=== PATIENT | female | born 1985 | race Two or more races ===

== ENCOUNTER 2017-03-30 11:49 | Emergency (ER) | payer MEDICAID ==
[~2017-03-30] VITALS: Ht 152.4 cm; Wt 62.1 kg
[2017-03-30 12:18] VITALS: BP 112/78
[2017-03-30] MEDS ORDERED: ACYCLOVIR400 MG ORAL (12:35)
[2017-03-30] MEDS ORDERED: ACETAMINOPHEN-1 EAC1 ORAL (12:35)
[2017-03-30] MEDS ORDERED: LIDOCAINE20 MG/1 M1 MM (12:35)
--- NOTE | 2017-03-30 12:36 | Emergency Room Report ---
History of Present Illness General Chief Complaint: Skin Rash/Abscess Source: Patient Present Illness HPI 31-year-old female complains of soft palate pain for one week. States that her daughter had stomatitis and that she had used the same strawberry out of drink. States early after she started having pain at the roof of her mouth that is tender to touch. States that she's got a medication for her symptoms and that she has worsening with eating food and no relieving factors. States the pain is constant denies any other physical complaints.Denies any current n/v/f/c/d, abd pain, back pain, neck pain, photophobia, phonophobia, CP, SOB or headache. Allergies: Coded Allergies: No Known Allergies (Unverified , 03/30/17) Patient History Last Menstrual Period: last month Now: No Immunizations: UTD Reviewed Nursing Documentation: PMH: Agreed, PSxH: Agreed Nursing Documentation-PMH Past Medical History: No Stated History Review of Systems All Other Systems: negative except mentioned in HPI Physical Exam Vital Signs Date Time Temp Pulse Resp B/P (MAP) Pulse Ox O2 Delivery O2 Flow Rate FiO2 03/30/17 11:57 98.2 107 20 112/78 98 Room Air Sp02 EP Interpretation: reviewed, normal General Appearance: no apparent distress, alert, GCS 15, non-toxic Head: normocephalic, atraumatic Eyes: bilateral eye normal inspection, bilateral eye PERRL ENT: hearing grossly normal, normal pharynx, no angioedema, normal voice, pharyngeal erythema, other - 2cm x 3cm Aphthous Ulcer extending to anterior and posterior palate with local erythema w/o swelling, discharge or induration Neck: full range of motion, supple/symm/no masses Respiratory: chest non-tender, lungs clear, normal breath sounds, speaking full sentences Cardiovascular #1: regular rate, rhythm, no edema Musculoskeletal: gait/station normal Neurologic: alert, oriented x3 Psychiatric: judgement/insight normal, mood/affect normal Skin: normal color, no rash, warm/dry, well hydrated Lymphatic: no adenopathy Medical Decision Making PA Attestation Dr. Arenas is my supervising physician with whom patient management has been discussed with. ER Course Pt. presents to the ED c/o of mouth pain Differential includes viral pharyngitis bacterial pharyngitis peritonsillar abscess tonsils stone and meningitis Vital signs: are WNL, pt. is afebrile H&PE are most consistent with herpangina stomatitis ORDERS: none required at this time, the diagnosis is clinical ED INTERVENTIONS: None required at this time. DISCHARGE: At this time pt. is stable for d/c to home. Will provide printed patient care instructions, and any necessary prescriptions. Care plan and follow up instructions have been discussed with the patient prior to discharge. Last Vital Signs Date Time Temp Pulse Resp B/P (MAP) Pulse Ox O2 Delivery O2 Flow Rate FiO2 03/30/17 12:18 98.2 107 20 112/78 98 Room Air Disposition: HOME, SELF-CARE Condition: Stable Scripts Acyclovir* (ACYCLOVIR*) 400 Mg Tablet 800 MG ORAL THREE TIMES A DAY for 7 Days, #21 TAB Prov: DOUGLAS SCALES.A. 03/30/17 Acetaminophen With Codeine (T#3) (TYLENOL #3 TAB*) Y Tab 1 TAB ORAL Q8H Y for For Pain for 3 Days, #12 TAB Prov: DOUGLAS SCALES P.A. 03/30/17 Lidocaine HCl (Lidocaine HCl Viscous) 100 Ml Solution 20 MG MM EVERY 6 HOURS for 5 Days, #120 ML Prov: DOUGLAS SCALES P.A. 03/30/17 Patient Instructions: Herpangina, Pediatric, Stomatitis Additional Instructions: Take medication as directed. Advised patient to use salt water gargle PRN. Advised patient to use chloraseptic as needed for throat pain in addition to APAP Q4H. Patient advised they can take Ibuprofen and Tylenol Q6H together for fever control as well. If sxs worsen or don't improve, please return sooner. Go to the ER if you develop SOB, CP, Rash, photophobia, neck pain, throat swelling occur, go to the ER immediately. DOUGLAS SCALES Mar 30, 2017 12:36
[2017-03-30 13:05] VITALS: BP 112/78
== END 2017-03-30 13:05 | disposition home or self-care (01) ==
LOC: EMR 13:00
DX: R21 Rash and other nonspecific skin eruption (principal); K12.0 Recurrent oral aphthae
CPT/HCPCS: 99284

== ENCOUNTER 2017-08-10 13:59 | Emergency (ER) | payer MEDICAID ==
[~2017-08-10] VITALS: Ht 142.2 cm; Wt 54.4 kg
[~2017-08-10 13:59] MED LIST: ACETAMINOPHEN-1 EAC1 ORAL; ACYCLOVIR400 MG ORAL; LIDOCAINE20 MG/1 M1 MM
[2017-08-10] MEDS ORDERED: Lidocaine 2% Visc 15ml soln ORAL ONE (14:15)
[2017-08-10] MEDS ORDERED: Mylanta II UD 30ml ORAL ONE (14:15)
[2017-08-10 14:17] VITALS: BP 118/75
[2017-08-10] MEDS ORDERED: Ketorolac 60mg Inj IM ONE (14:30)
--- NOTE | 2017-08-10 14:30 | Emergency Room Report ---
History of Present Illness General Chief Complaint: General Complaint Source: Patient Present Illness HPI 31-year-old female presents to the ED c/o pain to "bump in the middle of chest" been there for years. Describes of 8/10 in severity lower sternal pain times years. Patient reports that increase in pain and tenderness over the course of several months. Denies nausea, vomiting, fevers, chills. Patient denies trauma or fall she denies erythema, open wounds or cardiac history. Denies history of acid reflux She reports pain is exacerbated upon taking deep breaths. She denies abdominal pain or tenderness. . Denies recent URI. Denies cough, fevers , chills or history of asthma or COPD.Denies Palpitations, LOC, AMS, dizziness , Changes in Vision, Sensation, paresthesias, or a sudden severe headache. Allergies: Coded Allergies: No Known Allergies (Unverified , 03/30/17) Patient History Past Medical History: see triage record Past Surgical History: none Pertinent Family History: none Last Menstrual Period: 08/08/17 Reviewed Nursing Documentation: PMH: Agreed, PSxH: Agreed Nursing Documentation-PMH Past Medical History: No Stated History Review of Systems All Other Systems: negative except mentioned in HPI Physical Exam Vital Signs Date Time Temp Pulse Resp B/P (MAP) Pulse Ox O2 Delivery O2 Flow Rate FiO2 08/10/17 14:01 98.8 77 18 118/75 98 Room Air Sp02 EP Interpretation: reviewed, normal General Appearance: no apparent distress, alert, GCS 15, non-toxic Head: normocephalic, atraumatic Eyes: bilateral eye normal inspection, bilateral eye PERRL ENT: hearing grossly normal, normal voice Neck: full range of motion Respiratory: lungs clear, normal breath sounds, speaking full sentences, other - Reproducible pain and tenderness to the lower portion of the sternum/xiphoid process. Mild protrusion palpated. No increased temperature palpation no flail chest. Lungs sounds are clear bilaterally. Cardiovascular #1: regular rate, rhythm Gastrointestinal: normal bowel sounds, non tender, soft, other - Negative [place] signs, Negative MacBurney's sign, Negative Rosvigns Sign, Negative Psoas , No Peritoneal signs. Rectal: deferred Genitourinary: normal inspection Musculoskeletal: back normal, gait/station normal, normal range of motion, other Neurologic: alert, oriented x3, responsive, motor strength/tone normal, sensory intact, speech normal, grossly normal Psychiatric: judgement/insight normal Skin: normal color, no rash, warm/dry, well hydrated Medical Decision Making PA Attestation Dr. Alvarenga is my supervising Physician whom patient management has been discussed with. Diagnostic Impression: Primary Impression: Xyphoidalgia ER Course Pt. presents to the ED c/o pain to "bump in the middle of chest" been there for years. Describes of 8/10 in severity lower sternal pain times years. Patient reports that increase in pain and tenderness over the course of several months. Denies nausea, vomiting, fevers, chills. Patient denies trauma or fall she denies erythema, open wounds or cardiac history. Denies history of acid reflux She reports pain is exacerbated upon taking deep breaths. She denies abdominal pain or tenderness. . Denies recent URI. Denies cough, fevers, chills or history of asthma or COPD.Denies Palpitations, LOC, AMS, dizziness, Changes in Vision, Sensation, paresthesias, or a sudden severe headache. Ddx considered but are not limited to Fracture, dislocation, contusion, Sprain/ Strain/Spasm, Xiphoidalgia, Neoplastic mets. Vital signs: are WNL, pt. is afebrile H&PE are most consistent with musculoskeletal injury will perform imaging to r/ o fractures/dislocations. ORDERS:Not required at this time, mild rig cage deformity noted at the lower xiphoid process, flail chest no evidence to support acute fracture, acute lung pathology. -Reproducible pain and tenderness to the lower portion of the sternum/xiphoid process. Mild protrusion palpated. No increased temperature palpation no flail chest. Lungs sounds are clear bilaterally. ED INTERVENTIONS: - Toradol IM 20mg -I do not identify an emergent condition at this time. With current presentation , pt. is stable for close outpatient follow up and conservative treatment. D/ w pt. to return promptly to ED with worsening or new symptoms.- Pt. (and or responsible democrat) verbalizes' understanding and agreement with proposed treatment plan.proposed treatment plan. DISCHARGE: At this time pt. is stable for d/c to home. Will provide printed patient care instructions, and any necessary prescriptions. Care plan and follow up instructions have been discussed with the patient prior to discharge. Last Vital Signs Date Time Temp Pulse Resp B/P (MAP) Pulse Ox O2 Delivery O2 Flow Rate FiO2 08/10/17 14:17 98.8 76 18 118/75 98 Room Air Disposition: HOME, SELF-CARE Condition: Stable Scripts Albuterol Sulfate* (ALBUTEROL SULFATE MDI*) 8.5 Gm Hfa.aer.ad 2 PUFF INH Q4H, #1 INH 0 Refills Prov: Mallory Leyva 08/10/17 Ibuprofen* (MOTRIN*) 600 Mg Tablet 600 MG ORAL THREE TIMES A DAY, #30 TAB 0 Refills Prov: Mallory Leyva 08/10/17 Additional Instructions: Take medications as directed. Follow up with a Primary Care Provider in 3-5 days, even if your symptoms have resolved. --Please review list of primary care clinics, if you do not already have a primary care provider Return sooner to ED if new symptoms occur, or current symptoms become worse. - Please note that this Emergency Department Report was dictated using [employer] medical science technology software, occasionally this can lead to erroneous entry secondary to interpretation by the dictation equipment. Mallory Leyva Aug 10, 2017 14:30
[2017-08-10] MEDS ORDERED: ALBUTEROL SULF8.5 GM INH (14:54)
[2017-08-10] MEDS ORDERED: IBUPROFEN600 MG ORAL (14:54)
[2017-08-10 15:09] VITALS: BP 118/75
== END 2017-08-10 15:00 | disposition home or self-care (01) ==
LOC: EMR 14:45
DX: R07.89 Other chest pain (principal)
CPT/HCPCS: 96372; 99284